=== PATIENT | male | born 1990 | race Hispanic/Latino ===

== ENCOUNTER 2023-02-14 16:15 | Emergency (ER) | payer OTHER ==
--- OUTSIDE RECORDS SUMMARY | 2023-02-14 16:18 | XMS REPORT | Continuity of Care Document ---
:1990 Author Organization [facility] t Address [address] [facility] [place] [address] [place] [id number] Care Team Providers Name Role Phone Rajesh Morillo Attending Clinician [phone] Heather Kapoor Attending Clinician Unavailable Estephania Gonzalez Attending Clinician Unavailable Rajesh Morillo Unavailable [phone] Problems Condition Condition Condition Status Onset Resolution Last Treating Co mments Source Name Details Category Date Date Treatment Clinician Date URI - Condition Active 2019-07-31 Aakash Morillo acute 07-30 16:05:04 Rajesh Prado 00:00: Kyle ty 00 Health Body aches Condition Active 2019-07-31 Hina Morilloacy 07-30 15:44:34 [facility] 00:00: Kyle ty 00 Health Allergies, Adverse Reactions, Alerts This patient has no known allergies or adverse reactions. Social History Social Habit Start Date Stop Date Quantity Comments Source social history E&M 2019-07-31 2019-07-31 Previous Travel: [facility] 14:34:33 14:34:33 None. Health social history 2019-07-31 2019-07-31 reviewed today [facility] reviewed E&M 14:34:33 14:34:33 Health is there any 2019-07-31 2019-07-31 No [facility] chance that you 14:34:33 14:34:33 Health could be ? passive cigarette 2019-07-31 2019-07-31 No [facility] smoke exposure 14:34:33 14:34:33 Health how often per day 2019-07-31 2019-07-31 never vaper [facility] the patient is 14:34:33 14:34:33 Health using vaping system if the patient is 2019-07-31 2019-07-31 No [facility] using/has used a 14:34:33 14:34:33 Health vaping item, Current, Former, Never Used, Not asked Smoking Status Start Date Stop Date Source Never smoked tobacco (finding) L [facility] Medications This patient has no known medications. Vital Signs Vital Name Observation Time Observation Value Comments Source oxygen saturation, 2019-07-31 14:34:33 98 % [facility] oximetry Health blood pressure, 2019-07-31 14:34:33 78 mm[Hg] [facility] diastolic [facility] blood pressure, 2019-07-31 14:34:33 116 mm[Hg] [facility] systolic Health respiratory rate E&M 2019-07-31 14:34:33 18 /min [facility] pulse rate E&M 2019-07-31 14:34:33 72 /min [facility] temperature site 2019-07-31 14:34:33 oral [facility] temperature E&M 2019-07-31 14:34:33 98.2 [degF] [facility] height in 2019-07-31 14:34:33 160.02 [facility]M Health weight E&M 2019-07-31 14:34:33 143 [lb_av] [facility] weight in kilograms 2019-07-31 14:34:33 65 kg L [facility] E&M Health Procedures Procedure Date / Time Performed Performing Clinician Sourc e Rapid Flu - In House 2019-07-31 15:43:37 Rajesh Morillo y [facility] Encounters Start End Encounter Admission Attending Care Care Encounter Source Date/Time Date/Time Type Type Clinicians Facility Department ID 2019-07-31 2019-07-31 Office NIC Morillo Adult Encou nter/ [facility]:00:00 00:00:00 Visit Rajesh [facility] [id number] Co emanuel Wright [id number] Health 2019-07-31 2019-07-31 Office Rajesh Morillo LORE [facility] Adult Encounter/ [facility] 00:00:00 00:00:00 Visit Heather Kapoor [id number] Estephania Mathew [id number] Health Results Test Description Test Time Test Comments Results Result Comments Source influenza B virus antigen 2019-07-31 14:34:33 Test Item Value Reference Range Interpretation Comme nts influenza B virus antigen (test code = 38495) negative [facility] [id number] 14:34:33 Test Item Value Reference Range Interpretation Comments influenza virus A antigen (test code negative = 3413) [facility], rapid strep method 2019-07-31 14:34:33 Test Item Value Reference Range Interpretation Comments Microbial identification kit, rapid negative strep method (test code = 08219-8) [facility]
--- NOTE | 2023-02-14 16:31 | ER ---
Nurse's Notes [facility] Name: Roger Alvarenga Age: 32 yrs Sex: Male : 1990 Arrival Date: 02/14/2023 Time: 16:15 Bed Waiting Private MD: Diagnosis: Encounter for removal of sutures Presentation: 02/14 16:27 Chief complaint: Patient states: needs staple removed from head. Coronavirus screen: At ko1 this time, the client does not indicate any symptoms associated with coronavirus-19. Ebola Screen: No symptoms or risks identified at this time. Initial Sepsis Screen: Does the patient meet any 2 criteria? No. Patient's initial sepsis screen is negative. Does the patient have a suspected source of infection? No. Patient's initial sepsis screen is negative. Risk Assessment: Do you want to hurt yourself or someone else? Patient reports no desire to harm self or others. Onset of symptoms was February 14, 2023. 16:27 Method Of Arrival: Ambulatory ko1 16:27 Acuity: WILMER 5 ko1 Triage Assessment: 16:29 General: Appears in no apparent distress. Behavior is calm, cooperative, appropriate ko1 for age. Pain: Denies pain. Historical: - Home Meds: 16:29 Biktarvy oral [Active]; ko1 - PMHx: 16:29 HIV positive; ko1 - Immunization history:: Adult Immunizations up to date. - Social history:: Smoking status: Patient denies any tobacco usage or history of. Screenin:30 [facility] ED Fall Risk Assessment (Adult) History of falling in the last 3 months, ko1 including since admission No falls in past 3 months (0 pts) Confusion or Disorientation No (0 pts) Intoxicated or Sedated No (0 pts) Impaired Gait No (0 pts) Mobility Assist Device Used No (0 pt) Altered Elimination No (0 pt) Score/Fall Risk Level 0 - 2 = Low Risk Oriented to surroundings, Maintained a safe environment, Educated pt \T\ family on fall prevention, incl call for assistance when getting out of bed, Assessed \T\ reinforced patient's understanding of fall precautions, Provided non-skid footwear, Hourly rounding (assess needs \T\ fall precautionary measures) done. Abuse screen: Denies threats or abuse. Denies injuries from another. Nutritional screening: No deficits noted. Tuberculosis screening: No symptoms or risk factors identified. Vital Signs: 16:27 BP 120 / 70; Pulse 72; Resp 16; Temp 99.1; Pulse Ox 100% ; ko1 ED Course: 16:19 Patient arrived in ED. mg5 16:25 Alexandra Fernandez [facility]C [facility] snw 16:25 Rebel Dunne MD is Attending Physician. snw 16:29 Triage completed. ko1 16:29 Arm band placed on right wrist. Patient notified of wait time. ko1 16:30 Rebel Dunne MD is Referral Physician. snw 16:30 Referral Physician role handed off by Rebel Dunne MD snw 16:30 Patient has correct armband on for positive identification. Provided Education on: na. ko1 16:30 No provider procedures requiring assistance completed. Patient did not have IV access ko1 during this emergency room visit. Removal of Removed franco from left temporal area Franco site is well healed Patient tolerated well. Administered Medications: No medications were administered Medication: 16:30 VIS not applicable for this client. ko1 Outcome: 16:30 Discharged to home ambulatory, ko1 16:30 Condition: stable 16:30 Discharge instructions given to patient, Instructed on discharge instructions, follow up and referral plans. Demonstrated understanding of instructions, follow-up care, 16:31 Discharge ordered by . snw 16:33 Patient left the ED. ko1 Signatures: Alexandra Fernandez FNP-C FNP-Csnw Savanah Durham, RN RN ko1 Gertrude Albarado mg5
--- NOTE | 2023-02-14 16:31 | EDPHYS ---
Physician Documentation [facility] Name: Roger Alvarenga Age: 32 yrs Sex: Male : 1990 Arrival Date: 02/14/2023 Time: 16:15 Bed Waiting Private MD: ED Physician Rebel Dunne HPI: 02/14 16:32 This 32 yrs old Male presents to ER via Ambulatory with complaints of Staple snw Removal. 16:32 The patient has angelo on the left frontal area. The patient has not experienced snw similar symptoms in the past. had one staple placed on Jan 31, 2023. here for staple removal. Historical: - Home Meds: 16:29 Biktarvy oral [Active]; ko1 - PMHx: 16:29 HIV positive; ko1 - Immunization history:: Adult Immunizations up to date. - Social history:: Smoking status: Patient denies any tobacco usage or history of. ROS: 16:31 Constitutional: Negative for fever, chills, and weight loss, Eyes: Negative for injury, snw pain, redness, and discharge, ENT: Negative for injury, pain, and discharge, Neck: Negative for injury, pain, and swelling, Cardiovascular: Negative for chest pain, palpitations, and edema, Respiratory: Negative for shortness of breath, cough, wheezing, and pleuritic chest pain, Abdomen/GI: Negative for abdominal pain, nausea, vomiting, diarrhea, and constipation, Back: Negative for injury and pain, : Negative for injury, bleeding, discharge, and swelling, MS/Extremity: Negative for injury and deformity, Neuro: Negative for headache, weakness, numbness, tingling, and seizure, Psych: Negative for depression, anxiety, suicide ideation, homicidal ideation, and hallucinations, 16:31 Skin: Positive for need staple removed from left forehead, Exam: 16:31 Constitutional: This is a well developed, well nourished patient who is awake, alert, snw and in no acute distress. Eyes: Pupils equal round and reactive to light, extra-ocular motions intact. Lids and lashes normal. Conjunctiva and sclera are non-icteric and not injected. Cornea within normal limits. Periorbital areas with no swelling, redness, or edema. Cardiovascular: Regular rate and rhythm with a normal S1 and S2. No gallops, murmurs, or rubs. Normal PMI, no JVD. No pulse deficits. Respiratory: Lungs have equal breath sounds bilaterally, clear to auscultation and percussion. No rales, rhonchi or wheezes noted. No increased work of breathing, no retractions or nasal flaring. Abdomen/GI: Soft, non-tender, with normal bowel sounds. No distension or tympany. No guarding or rebound. No evidence of tenderness throughout. Skin: Warm, dry with normal turgor. Normal color with no rashes, no lesions, and no evidence of cellulitis. MS/ Extremity: Pulses equal, no cyanosis. Neurovascular intact. Full, normal range of motion. Neuro: Awake and alert, GCS 15, oriented to person, place, time, and situation. Cranial nerves II-XII grossly intact. Motor strength 5/5 in all extremities. Sensory grossly intact. Cerebellar exam normal. Normal gait. Psych: Awake, alert, with orientation to person, place and time. Behavior, mood, and affect are within normal limits. Vital Signs: 16:27 BP 120 / 70; Pulse 72; Resp 16; Temp 99.1; Pulse Ox 100% ; ko1 Procedures: 16:34 Foreign Body Removal: removed one staple with staple remover. snw MDM: 16:25 Patient medically screened. snw Administered Medications: No medications were administered Disposition: 17:24 Co-signature as Attending Physician, Rebel Dunne MD. ec2 Disposition Summary: 02/14/23 16:31 Discharge Ordered Notes: Location: Home snw Condition: Stable snw Diagnosis - Encounter for removal of sutures snw Followup: snw - With: Emergency Department - When: As needed - Reason: Worsening of condition Followup: snw - With: Private Physician - When: 2 - 3 days - Reason: Recheck today's complaints, Continuance of care, Re-evaluation by your physician Discharge Instructions: - Discharge Summary Sheet snw - Suture Removal, Care After snw - Wound Care, Adult snw Forms: - Medication Reconciliation Form snw - Thank You Letter snw - Antibiotic Education snw - Prescription Opioid Use snw - Patient Portal Instructions snw - Leadership Thank You Letter snw Signatures: Alexandra Fernandez FNP-Isabelle HAM PUMPER-Csnw Savanah Durham RN RN ko1 Rebel Dunne, MD ec2
[2023-02-14 16:37] VITALS: BP 120/70; TEMP 99.1; O2SAT 100
== END 2023-02-14 16:33 | disposition home or self-care (01) ==
LOC: ER 16:15
DX: Z48.02 Encounter for removal of sutures (principal)
CPT/HCPCS: 99283